=== PATIENT | female | born 1955 | race Caucasian/White ===

== ENCOUNTER 2020-11-03 06:00 | Inpatient (IN) | payer BC, OTHER ==
[2020-11-01 08:24] LABS: BASOPHILS # (AUTO) 0.1 (0.0-0.1); BASOPHILS % 0.8 % (0.0-1.0); EOSINOPHILS # (AUTO) 0.3 (0.0-0.4); EOSINOPHILS % 3.5 % (0.0-6.0); HEMATOCRIT 41.7 % (34.2-44.1); HEMOGLOBIN 12.8 g/dL (12.0-16.0); LYMPHOCYTES # (AUTO) 2.4 (1.0-3.2); LYMPHOCYTES % 29.4 % (18.0-39.1); MEAN CORPUSCULAR HEMOGLOBIN 25.9 pg (28-32); MEAN CORPUSCULAR HGB CONC 30.7 g/dL (31-35); MEAN CORPUSCULAR VOLUME 84.2 fL (81-99); MONOCYTES # (AUTO) 0.7 (0.2-0.8); MONOCYTES % 8.2 % (4.4-11.3); NEUTROPHILS # (AUTO) 4.8 (2.1-6.9); NEUTROPHILS % 57.9 % (38.7-80.0); PLATELET COUNT 309 x10e3/uL (140-360); RED BLOOD COUNT 4.95 x10e6/uL (3.6-5.1); RED CELL DISTRIBUTION WIDTH 26.5 % (11.7-14.4)
[2020-11-01 08:45] LABS: ALBUMIN/GLOBULIN RATIO 1.1 (0.8-2.0); ANION GAP 12.6 mmol/L (8-16); CALCIUM 10.1 mg/dL (8.4-10.2); CREATININE, SERUM 0.76 mg/dL (0.57-1.11); POTASSIUM 4.6 mmol/L (3.5-5.1)
[~2020-11-03] VITALS: Ht 149.9 cm; Wt 68.5 kg
[~2020-11-03 06:00] MED LIST: LEVOFLOXACIN250 MG PO; MULTI-VITAMIN1 EACH PO; PROTONIX20 MG PO
[2020-11-03] MEDS ORDERED: NALOXONE HCL INJ 0.4 MG/ML AMP IV PRN (11:15)
[2020-11-03] MEDS ORDERED: ACETAMINOPHEN 1000 MG/100 ML IV PRN (11:15)
[2020-11-03] MEDS: HYDROMORPHONE 0.2MG/ML-SOD CHL 30ML PCA SYRINGE IV PRN (11:25)
[2020-11-03] MEDS ORDERED: METOCLOPRAMIDE HCL 10 MG/2ML VIAL ONE (11:27)
[2020-11-03] MEDS ORDERED: PROMETHAZINE HCL (IM) 25 MG/ML VIAL IM ONE (11:36)
[2020-11-03] MEDS ORDERED: FENTANYL CITRATE/PF 100MCG/2 ML INJ ONE (12:01)
[2020-11-03] MEDS ORDERED: MIDAZOLAM HCL 2 MG/2 ML VIAL ONE (12:01)
[2020-11-03] MEDS ORDERED: CEFOXITIN SOD 1 GM VIAL ONE (13:09)
[2020-11-03] MEDS ORDERED: ROCURONIUM BROMIDE 10 MG/ML 5ML VIAL IV ONE (13:09)
[2020-11-03] MEDS ORDERED: EPHEDRINE SULFATE INJ 50 MG/ML VIAL ONE (13:09)
[2020-11-03] MEDS ORDERED: PROPOFOL IV EMULSION 10 MG/ML 20 ML VIAL ONE (13:09)
[2020-11-03] MEDS ORDERED: POVIDONE IODINE 0.05% 0.05 % ML PO ONE (13:09)
[2020-11-03] MEDS ORDERED: SEVOFLURANE INHAL SOLN 250 ML PEN BTL ONE (13:09)
[2020-11-03] MEDS ORDERED: ONDANSETRON HCL INJ 2MG/ML 2ML 2 MG/ML VIAL ONE (13:09)
[2020-11-03] MEDS ORDERED: LIDOCAINE HCL 2% LOCAL INJ 5 ML SDV VIAL INJ ONE (13:09)
[2020-11-03] MEDS ORDERED: DEXAMETHASONE SOD PHOS INJ 4 MG/ML SDV ONE (13:09)
[2020-11-03] MEDS: SODIUM CHLORIDE 0.9% 1000ML 1,000 ML IV SCH (15:00)
[2020-11-03] MEDS: SODIUM CHLORIDE 0.9% 250ML IRRIG IR SCH ×3 (15:00→21:54)
[2020-11-03 15:20] VITALS: BP 123/55
[2020-11-03 15:21] VITALS: BP 114/51
[2020-11-03 15:26] VITALS: BP 114/51
[2020-11-03] MEDS: CEFOXITIN 1GM/0.9% NS 50ML 50 ML IV SCH ×2 (15:41→21:51)
[2020-11-03 16:20] VITALS: BP 118/66
[2020-11-03 20:00] VITALS: BP 126/64
[2020-11-03 21:00] VITALS: BP 126/64
[2020-11-04] VITALS (8 sets, daily range): BP systolic 108–135; BP diastolic 49–72
[2020-11-04] MEDS: SODIUM CHLORIDE 0.9% 250ML IRRIG IR SCH ×6 (00:03→19:45)
[2020-11-04] MEDS: SODIUM CHLORIDE 0.9% 1000ML 1,000 ML IV SCH ×3 (00:03→22:45)
[2020-11-04] MEDS: HYDROMORPHONE 0.2MG/ML-SOD CHL 30ML PCA SYRINGE IV PRN (03:14)
[2020-11-04 09:24] LABS: BASOPHILS % 0.2 % (0.0-1.0); HEMATOCRIT 35.8 % (34.2-44.1); HEMOGLOBIN 11.2 g/dL (12.0-16.0); LYMPHOCYTES # (AUTO) 1.6 (1.0-3.2); LYMPHOCYTES % 13.8 % (18.0-39.1); MEAN CORPUSCULAR HEMOGLOBIN 26.8 pg (28-32); MEAN CORPUSCULAR HGB CONC 31.3 g/dL (31-35); MEAN CORPUSCULAR VOLUME 85.6 fL (81-99); MONOCYTES # (AUTO) 0.9 (0.2-0.8); MONOCYTES % 7.3 % (4.4-11.3); NEUTROPHILS # (AUTO) 9.3 (2.1-6.9); NEUTROPHILS % 78.4 % (38.7-80.0); PLATELET COUNT 263 x10e3/uL (140-360); RED BLOOD COUNT 4.18 x10e6/uL (3.6-5.1)
[2020-11-04 09:49] LABS: ANION GAP 11.4 mmol/L (8-16); CALCIUM 8.7 mg/dL (8.4-10.2); CREATININE, SERUM 0.62 mg/dL (0.57-1.11); POTASSIUM 4.4 mmol/L (3.5-5.1)
[2020-11-05] VITALS (8 sets, daily range): BP systolic 107–133; BP diastolic 46–64
[2020-11-05] MEDS: HYDROMORPHONE 0.2MG/ML-SOD CHL 30ML PCA SYRINGE IV PRN (00:04)
[2020-11-05] MEDS ORDERED: HYDROMORPHONE 0.2MG/ML-SOD CHL 30ML PCA SYRINGE IV ONE (00:07)
[2020-11-05] MEDS: SODIUM CHLORIDE 0.9% 250ML IRRIG IR SCH ×4 (00:12→11:15)
[2020-11-05 05:55] LABS: BASOPHILS % 0.4 % (0.0-1.0); EOSINOPHILS # (AUTO) 0.1 (0.0-0.4); EOSINOPHILS % 0.6 % (0.0-6.0); HEMATOCRIT 35.8 % (34.2-44.1); HEMOGLOBIN 11.2 g/dL (12.0-16.0); LYMPHOCYTES # (AUTO) 2.4 (1.0-3.2); LYMPHOCYTES % 25.2 % (18.0-39.1); MEAN CORPUSCULAR HEMOGLOBIN 26.9 pg (28-32); MEAN CORPUSCULAR HGB CONC 31.3 g/dL (31-35); MEAN CORPUSCULAR VOLUME 85.9 fL (81-99); MONOCYTES # (AUTO) 0.8 (0.2-0.8); MONOCYTES % 8.6 % (4.4-11.3); NEUTROPHILS # (AUTO) 6.2 (2.1-6.9); NEUTROPHILS % 64.9 % (38.7-80.0); PLATELET COUNT 228 x10e3/uL (140-360); RED BLOOD COUNT 4.17 x10e6/uL (3.6-5.1); RED CELL DISTRIBUTION WIDTH 24.1 % (11.7-14.4)
[2020-11-05 06:42] LABS: ANION GAP 9.7 mmol/L (8-16); CALCIUM 8.5 mg/dL (8.4-10.2); CREATININE, SERUM 0.57 mg/dL (0.57-1.11); POTASSIUM 3.7 mmol/L (3.5-5.1)
[2020-11-05] MEDS ORDERED: BISACODYL 10 MG SUPP PR ONE (08:00)
[2020-11-05] MEDS: SODIUM CHLORIDE 0.9% 1000ML 1,000 ML IV SCH ×2 (09:16→19:17)
[2020-11-05] MEDS: BISACODYL 10 MG SUPP PR SCH (21:20)
[2020-11-06] VITALS (8 sets, daily range): BP systolic 119–135; BP diastolic 59–98
[2020-11-06] MEDS: HYDROMORPHONE 1MG/1ML INJ IV PRN ×5 (02:29→21:39)
[2020-11-06] MEDS: SODIUM CHLORIDE 0.9% 1000ML 1,000 ML IV SCH ×2 (02:57→13:52)
[2020-11-06 07:52] LABS: BASOPHILS % 0.5 % (0.0-1.0); EOSINOPHILS # (AUTO) 0.1 (0.0-0.4); EOSINOPHILS % 1.2 % (0.0-6.0); HEMATOCRIT 39.5 % (34.2-44.1); HEMOGLOBIN 12.5 g/dL (12.0-16.0); LYMPHOCYTES # (AUTO) 1.7 (1.0-3.2); LYMPHOCYTES % 22.3 % (18.0-39.1); MEAN CORPUSCULAR HEMOGLOBIN 26.6 pg (28-32); MEAN CORPUSCULAR HGB CONC 31.6 g/dL (31-35); MONOCYTES # (AUTO) 0.7 (0.2-0.8); MONOCYTES % 8.6 % (4.4-11.3); NEUTROPHILS # (AUTO) 5.2 (2.1-6.9); NEUTROPHILS % 67.1 % (38.7-80.0); PLATELET COUNT 237 x10e3/uL (140-360); RED CELL DISTRIBUTION WIDTH 23.1 % (11.7-14.4)
[2020-11-06 08:12] LABS: ANION GAP 15.3 mmol/L (8-16); CALCIUM 8.8 mg/dL (8.4-10.2); CREATININE, SERUM 0.5 mg/dL (0.57-1.11); POTASSIUM 3.3 mmol/L (3.5-5.1)
[2020-11-06] MEDS: BISACODYL 10 MG SUPP PR SCH (08:59)
[2020-11-06] MEDS ORDERED: BENZONATATE 100 MG CAP PO PRN (09:15)
[2020-11-06] MEDS ORDERED: POTASSIUM CHLORIDE 20MEQ/100ML 100 ML IV ONE (09:15)
[2020-11-06] MEDS: ONDANSETRON HCL INJ 2MG/ML 2ML 2 MG/ML VIAL IV PRN (09:46)
[2020-11-06] MEDS: HYDROCODONE/APAP 7.5MG-325MG 1 EA TAB PO PRN (13:17)
[2020-11-06] MEDS ORDERED: POTASSIUM CHLORIDE 20 MEQ TAB CR PO NR (16:05)
[2020-11-07] VITALS (8 sets, daily range): BP systolic 118–142; BP diastolic 61–70
[2020-11-07] MEDS: HYDROMORPHONE 1MG/1ML INJ IV PRN ×7 (00:39→21:40)
[2020-11-07] MEDS: ONDANSETRON HCL INJ 2MG/ML 2ML 2 MG/ML VIAL IV PRN ×3 (00:39→21:43)
[2020-11-07] MEDS: MAGNESIUM/ALUMINUM/SIMETHICONE 30 ML UDC PO PRN ×2 (05:15→08:44)
[2020-11-07] MEDS: SODIUM CHLORIDE 0.9% 1000ML 1,000 ML IV SCH (13:37)
[2020-11-08] VITALS: BP 120/63
[2020-11-08] MEDS: HYDROMORPHONE 1MG/1ML INJ IV PRN ×6 (01:18→18:04)
[2020-11-08] MEDS: SODIUM CHLORIDE 0.9% 1000ML 1,000 ML IV SCH (03:13)
[2020-11-08 04:00] VITALS: BP 127/61
[2020-11-08] MEDS: ONDANSETRON HCL INJ 2MG/ML 2ML 2 MG/ML VIAL IV PRN ×3 (07:32→15:01)
[2020-11-08 07:34] VITALS: BP 104/68
[2020-11-08 08:32] VITALS: BP 104/68
[2020-11-08] MEDS ORDERED: POTASSIUM CHLORIDE 20MEQ/100ML 100 ML IV ONE (10:40)
[2020-11-08 11:37] VITALS: BP 110/63
[2020-11-08] MEDS: HYDROCODONE/APAP 7.5MG-325MG 1 EA TAB PO PRN ×2 (12:18→16:57)
[2020-11-08] MEDS: MAGNESIUM/ALUMINUM/SIMETHICONE 30 ML UDC PO PRN (13:03)
[2020-11-08 15:46] VITALS: BP 112/58
[2020-12-01] MEDS ORDERED: HYDROCODON-ACE1 EAC9 PO (10:08)
== END 2020-11-08 18:59 | disposition home or self-care (01) | DRG 331 ==
LOC: OR 06:00 → PACU V 11:42 → MED/SURG 12:59
PROVIDERS: ADMIT Surgery; ATTEND Surgery
PROC: 0DB80ZZ Excision of Small Intestine, Open Approach (ICD-10-PCS; 2020-11-03)
PROC: 0DTF0ZZ Resection of Right Large Intestine, Open Approach (ICD-10-PCS; principal; 2020-11-03 07:30)
DX: C18.0 Malignant neoplasm of cecum (principal); D50.9 Iron deficiency anemia, unspecified; Q43.0 Meckel's diverticulum (displaced) (hypertrophic); Z20.822 Contact with and (suspected) exposure to COVID-19
CPT/HCPCS: 36415; 71046; 80048; 80053; 85025; 88304; 88305; 88309; 88313; 88342; 93005; 96361; J0694; J1100; J1170; J2001; J2250; J2405; J2550; J2765; J3010; J3480; J7030; U0002

== ENCOUNTER → 2020-12-03 | Day surgery (SDC) | payer BC ==
[~2020-12-03] MED LIST changes: +BUPIVACAINE 0.25% 30ML SDV ONE; +HEPARIN SOD (PORCINE) 5,000 UNIT/ML VIAL ONE; +HYDROCODON-ACE1 EAC9 PO; +HYDROCODONE/APAP 7.5MG-325MG 1 EA TAB ONE; +HYDROMORPHONE 1MG/1ML INJ ONE; +SODIUM CHLORIDE 0.9% 500ML 500 ML ONE
[2020-12-03 10:30] VITALS: BP 137/70
== END | disposition home or self-care (01) ==
LOC: OR 06:42
PROVIDERS: ATTEND Surgery
DX: C18.9 Malignant neoplasm of colon, unspecified (principal); K21.9 Gastro-esophageal reflux disease without esophagitis; K76.0 Fatty (change of) liver, not elsewhere classified; D64.9 Anemia, unspecified; M19.90 Unspecified osteoarthritis, unspecified site; N39.0 Urinary tract infection, site not specified; N20.0 Calculus of kidney; Z01.812 Encounter for preprocedural laboratory examination; Z20.822 Contact with and (suspected) exposure to COVID-19; Z85.43 Personal history of malignant neoplasm of ovary
CPT/HCPCS: 36561; 77001; C1751; J1170; J1644; J7040; U0002

== ENCOUNTER 2024-03-04 06:52 | Emergency (ER) | payer MEDICARE ==
[~2024-03-04] VITALS: Ht 147.3 cm; Wt 73.9 kg
[~2024-03-04 06:52] MED LIST changes: -BUPIVACAINE 0.25% 30ML SDV ONE; +CRESTOR10 MG PO; +DICLOFENAC SOD100 GM; +FAMOTIDINE20 MG PO; -HEPARIN SOD (PORCINE) 5,000 UNIT/ML VIAL ONE; -HYDROCODONE/APAP 7.5MG-325MG 1 EA TAB ONE; -HYDROMORPHONE 1MG/1ML INJ ONE; +MAALOX MAXIMUM355 ML PO; +MONTELUKAST SOD10 MG PO; +OMEPRAZOLE40 MG PO; +ONDANSETRON ODT4 MG PO; -SODIUM CHLORIDE 0.9% 500ML 500 ML ONE; +TRIAMTERENE-HCTZ1 EA PO
[2024-03-04 06:55] VITALS: PULSE 81; RESP 18; TEMP 98
[2024-03-04] MEDS ORDERED: LORATADINE10 MG PO (07:38)
[2024-03-04] MEDS ORDERED: DIPHENHYDRAMINE25 M2 PO (07:38)
[2024-03-04] MEDS ORDERED: AZITHROMYCIN250 MG PO (07:38)
[2024-03-04 08:18] VITALS: BP 142/65; PULSE 73; RESP 18; TEMP 98.3; O2SAT 100
== END 2024-03-04 08:00 | disposition home or self-care (01) ==
LOC: FSED 07:30
DX: R05.9 Cough, unspecified (principal); J06.9 Acute upper respiratory infection, unspecified; J30.9 Allergic rhinitis, unspecified; R09.81 Nasal congestion; H83.8X3 Other specified diseases of inner ear, bilateral; Z11.52 Encounter for screening for COVID-19
CPT/HCPCS: 0223U; 83518 ×2; 87400; 99283